=== PATIENT | female | born 1985 | race Caucasian/White ===

== ENCOUNTER 2017-07-11 13:22 | Emergency (ER) | payer BC, OTHER ==
--- NOTE | 2017-07-11 13:39 | ED ---
General Adult HPI - General Chief complaint: Eye Problems Stated complaint: [facility] Time Seen by Provider: 07/11/17 13:29 Source: patient, RN notes reviewed Mode of arrival: ambulatory Limitations: no limitations - History of Present Illness Initial comments: 31-year-old female presents emergency 5 chief complaint of saliva exposure to the eyes. Patient states that 1% on her face and she felt some saliva get into her eyes. Patient states that she did flush her eyes and wash her face. 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 Patient denies any health concerns. She states that she doesn't recall her last tetanus wishes x-ray on the other vaccinations. Patient states that she is now child's name. Patient states that she is not currently having any symptoms at this time. Patient denies any blood being in the saliva.Patient denies any recent fever, chills, shortness of breath, chest pain, back pain, abdominal pain, nausea vomiting, numbness or tingling, dysuria or hematuria, constipation or diarrhea, headaches or visual changes, or any other current symptoms. - Related Data Home Medications Medication Instructions Recorded Confirmed No Known Home Medications [No 07/11/17 07/11/17 Known Home Medications] Allergies Allergy/AdvReac Type Severity Reaction Status Date / Time cefazolin Allergy Rash/Hives Verified 07/11/17 13:29 codeine Allergy Rash/Hives Verified 07/11/17 13:29 Review of Systems ROS Statement: Those systems with pertinent positive or pertinent negative responses have been documented in the HPI. ROS Other: All systems not noted in ROS Statement are negative. Past Medical History Past Medical History: Musculoskeletal Disorder Additional Past Medical History / Comment(s): osteochronditis dissecans History of Any Multi-Drug Resistant Organisms: None Reported Past Surgical History: Section, Orthopedic Surgery Additional Past Surgical History / Comment(s): lt knee arthroscope x2 Past Anesthesia/Blood Transfusion Reactions: No Reported Reaction Past Psychological History: No Psychological Hx Reported Smoking Status: Never smoker Past Alcohol Use History: None Reported Past Drug Use History: None Reported - Past Family History Father Family Medical History: Pulmonary Embolus General Exam Limitations: no limitations General appearance: alert, in no apparent distress Head exam: Present: atraumatic, normocephalic, normal inspection Eye exam: Present: normal appearance, PERRL, EOMI. Absent: scleral icterus, conjunctival injection, periorbital swelling ENT exam: Present: normal exam, mucous membranes moist Neck exam: Present: normal inspection. Absent: tenderness, meningismus, lymphadenopathy Respiratory exam: Present: normal lung sounds bilaterally. Absent: respiratory distress, wheezes, rales, rhonchi, stridor Cardiovascular Exam: Present: regular rate, normal rhythm, normal heart sounds. Absent: systolic murmur, diastolic murmur, rubs, gallop, clicks Extremities exam: Present: normal inspection, full ROM, normal capillary refill. Absent: tenderness, pedal edema, joint swelling, calf tenderness Neurological exam: Present: alert, oriented X3 Psychiatric exam: Present: normal affect, normal mood Skin exam: Present: warm, dry, intact, normal color. Absent: rash Course Vital Signs 07/11/17 13:27 Temperature 98.2 F Pulse Rate 75 Respiratory 18 Rate Blood Pressure 142/76 O2 Sat by Pulse 98 Oximetry Medical Decision Making - Medical Decision Making 31-year-old female presents for slight exposure to the eyes. This and we will update her tetanus. We did start the exposure process. We discussed return parameters and follow-up and all patient's questions. She stated she understood and she is very plan. TENDERNESS. She will be discharged Disposition Clinical Impression: Employee exposure to body fluids Disposition: HOME SELF-CARE Condition: Stable Instructions: Eye Wash (Into the eye), Postexposure Prophylaxis (ED) Additional Instructions: Please use medication as discussed. Please follow up with family doctor if symptoms have not improved over the next two days. Please return to the emergency room if your symptoms increase or worsen or for any other concerns. Referrals: Julissa Trotter DO [Primary Care Provider] - 1-2 days Time of Disposition: 13:39
[2017-07-11] MEDS ORDERED: DIPH,PERTUS(ACELL)TETVAC-LF 0.5 ML VIAL IM ONE (13:40)
[2017-07-11 14:54] VITALS: BP 138/78; PULSE 78; RESP 17; TEMP 98.7
[2017-07-11 15:17] LABS: Hepatitis B Surface Ag Index 0.05
[2017-07-11 15:34] LABS: Hepatitis C Virus IgG Ab Negative (Negative); Hepatitis C Virus IgG Index 0.04
== END 2017-07-11 14:53 | disposition home or self-care (01) ==
LOC: EC 13:22
DX: Z57.8 Occupational exposure to other risk factors (principal); Z88.1 Allergy status to other antibiotic agents; Z88.5 Allergy status to narcotic agent; Z23 Encounter for immunization
CPT/HCPCS: 36415; 86803; 87340; 87390; 90471; 90715; 99283

== ENCOUNTER → 2019-11-25 | Outpatient (CLI) | payer BC ==
[2019-11-25 17:33] LABS: HCT 31.5 % (34.0-46.0); HGB 11.1 gm/dL (11.4-16.0); MCH 33.3 pg (25.0-35.0); MCHC 35.3 g/dL (31.0-37.0); MCV 94.3 fL (80.0-100.0); Mean Platelet Volume 7.1; Platelet Count 250 k/uL (150-450); RBC 3.34 m/uL (3.80-5.40); RDW 12.3 % (11.5-15.5); WBC 13.4 k/uL (3.8-10.6)
== END | disposition home or self-care (01) ==
LOC: LABWHC1 16:03
PROVIDERS: ATTEND Obstetrics & Gynecology
DX: Z34.82 Encounter for supervision of other normal pregnancy, second trimester (principal); Z3A.00 Weeks of gestation of pregnancy not specified
CPT/HCPCS: 36415; 82950; 85027

== ENCOUNTER 2020-03-02 06:00 | Inpatient (IN) | payer BC ==
[2020-03-01 13:21] VITALS: BMI 25.4
--- NOTE | 2020-03-01 18:25 | P.HPOB ---
History of Present Illness H&P Date: 03/01/20 Chief Complaint: Scheduled repeat section This is a 34 y.o. female gravid 3, para 2, with an estimated date of confinement of 03/09/2020, estimated gestational age of 39-0/7 weeks, who presents for scheduled repeat section. She admits to good movement and denies regular contractions. course has been essentially uncomplicated. labs: Hepatitis B surface antigen-neg RPR-NR Rubella-immune Blood type-A+ Antibody screen-neg HIV-NR Hemoglobin-12.2 Toxoplasma-neg Random glucose-77 Quad screen-neg 1 hr. GTT-168, 3 hr. GTT-within normal limits GBS-neg OB Hx: . History of 2 previous c-sections. 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 Review of Systems Constitutional: Denies chills, Denies fever Eyes: denies blurred vision, denies pain Ears, nose, mouth and throat: Denies headache, Denies sore throat Cardiovascular: Denies chest pain, Denies shortness of breath Respiratory: Denies cough Gastrointestinal: Denies abdominal pain, Denies diarrhea, Denies nausea, Denies vomiting Genitourinary: Reports pelvic pain, Reports Musculoskeletal: Reports low back pain Integumentary: Denies pruritus, Denies rash Neurological: Denies numbness, Denies weakness Psychiatric: Denies anxiety, Denies depression Past Medical History Past Medical History: Musculoskeletal Disorder Additional Past Medical History / Comment(s): osteochronditis dissecans History of Any Multi-Drug Resistant Organisms: None Reported Past Surgical History: Section, Orthopedic Surgery Additional Past Surgical History / Comment(s): lt knee arthroscope x2. C-SEC X 2 Past Anesthesia/Blood Transfusion Reactions: Motion Sickness, Postoperative Nausea & Vomiting (PONV) Past Psychological History: No Psychological Hx Reported Smoking Status: Never smoker Past Alcohol Use History: None Reported Past Drug Use History: None Reported - Past Family History Father Family Medical History: Pulmonary Embolus Mother Family Medical History: Hypertension Medications and Allergies Home Medications Medication Instructions Recorded Confirmed Type Pnv No.95/Ferrous Fum/Folic AC 1 each PO DAILY 03/01/20 03/02/20 History [ Multivitamin Tablet] Allergies Allergy/AdvReac Type Severity Reaction Status Date / Time cefazolin Allergy Rash/Hives Verified 03/02/20 06:21 codeine Allergy Rash/Hives Verified 03/02/20 06:21 Exam Osteopathic Statement: *. No significant issues noted on an osteopathic structural exam other than those noted in the History and Physical/Consult. Intake and Output 03/01/20 03/01/20 03/01/20 06:59 14:59 22:59 Other: Weight 74.843 kg HEENT: within normal limits Heart: regular rate & rhythm Lungs: clear to auscultation Abdomen: heart tones: 160's by doppler Cervix: closed/uneffaced/-2 Results Result Diagrams: 03/02/20 06:20 Assessment and Plan (1) 39 weeks gestation of Current Visit: No Status: Acute Code(s): Z3A.39 - 39 WEEKS GESTATION OF SNOMED Code(s): 52766392 (2) Previous delivery affecting Current Visit: No Status: Acute Code(s): O34.219 - MATERNAL CARE FOR UNSP TYPE SCAR FROM PREVIOUS DEL SNOMED Code(s): 276921317 Plan: Proceed with repeat section. I have discussed the risks, benefits, and alternative therapies for the above- mentioned procedure and for both sedation/anesthesia as well as necessary blood products administration, if indicated, as they pertain to this patient. The patient has indicated her understanding and acceptance of the risks and pr ocedures discussed.
[2020-03-02] MEDS ORDERED: LIDOCAINE 1% (10MG/ML) FOR IV START INTRADERMA PRN (06:20)
[2020-03-02] MEDS ORDERED: CITRIC ACID-SODIUM CITRATE 15 ML CUP PO ONE (06:20)
[2020-03-02] MEDS ORDERED: LACTATED RINGERS 1,000 ML IV SCH (06:20)
[2020-03-02] MEDS ORDERED: CLINDAMYCIN 900 MG in DEXTROSE 5% IN WATER 50 ML IVPB ONE ×2 (06:30)
[2020-03-02 06:45] LABS: Basophils % (A) 0 %; Eosinophils # (A) 0.1 k/uL (0-0.7); Eosinophils % (A) 1 %; HCT 34.4 % (34.0-46.0); Lymphocytes # (A) 2.3 k/uL (1.0-4.8); Lymphocytes % (A) 20 %; MCH 33.7 pg (25.0-35.0); MCV 96.3 fL (80.0-100.0); Mean Platelet Volume 7.7; Monocytes # (A) 0.6 k/uL (0-1.0); Monocytes % (A) 5 %; Neutrophils # (A) 8.4 k/uL (1.3-7.7); Neutrophils % (A) 72 %; Platelet Count 231 k/uL (150-450); RBC 3.57 m/uL (3.80-5.40); RDW 12.3 % (11.5-15.5); WBC 11.7 k/uL (3.8-10.6)
[2020-03-02] MEDS ORDERED: ONDANSETRON 4 MG/2 ML VIAL ONE (07:42)
[2020-03-02] MEDS ORDERED: ePHEDrine SULFATE/0.9% NACL/PF 50 MG/5 ML SYRINGE IV ONE (07:42)
[2020-03-02] MEDS ORDERED: KETOROLAC 30 MG/ML 1 ML VIAL ONE (07:42)
[2020-03-02] MEDS ORDERED: OXYTOCIN 10 UNIT/ML 1 ML VIAL ONE (07:42)
[2020-03-02] MEDS ORDERED: MORPHINE SULFATE (PF) 0.3 MG/0.3 ML SYR ONE (07:42)
[2020-03-02] MEDS ORDERED: ONDANSETRON 4 MG/2 ML VIAL IVP PRN ×2 (08:21→08:45)
[2020-03-02] MEDS ORDERED: diphenhydrAMINE 50 MG/ML 1 ML VIAL IVP PRN ×3 (08:21→08:45)
[2020-03-02] MEDS ORDERED: NALOXONE 0.4 MG/ML 1 ML VIAL IV PRN ×2 (08:21→08:45)
[2020-03-02] MEDS ORDERED: HYDROmorphone 0.5 MG/0.5 ML SYRINGE IVP PRN (08:21)
[2020-03-02] MEDS ORDERED: KETOROLAC 30 MG/ML 1 ML VIAL IVP PRN (08:21)
--- NOTE | 2020-03-02 08:33 | P.OP ---
Date of Procedure: 03/02/20 Preoperative Diagnosis: 1. Intrauterine at 39-0/7 weeks. 2. History of previous sections. Postoperative Diagnosis: Same Procedure(s) Performed: Repeat low transverse section Anesthesia: spinal (Duramorph) Surgeon: Nancy Garcia Fmd Teacher #1: Harris Paz Estimated Blood Loss (ml): 400 Pathology: none sent Condition: stable Disposition: floor Indications for Procedure: This is a 34-year-old female 3 para 2 at 39-0/7 weeks who presented for scheduled repeat section. I have discussed the risks, benefits, and alternative therapies for the above- mentioned procedure and for both sedation/anesthesia as well as necessary blood products administration, if indicated, as they pertain to this patient. The patient has indicated her understanding and acceptance of the risks and procedures discussed. Operative Findings: A viable male is noted in the vertex presentation with scores of 9 at 1 minute and 9 at 5 minutes and infant weight of 7 lbs. 10 oz. Normal uterus tubes and ovaries are noted. Description of Procedure: The patient is taken to the operating room where she is placed in the dorsal supine position with leftward tilt after spinal Duramorph anesthesia is given. She is prepped and draped in the normal sterile fashion. Skin was tested and found to be adequately anesthetized. A Pfannenstiel skin incision was made with a scalpel through the previous laparotomy scar. A second knife was used to carry the incision down to the underlying layer of fascia. The fascia was nicked in the midline with a scalpel and then extended laterally bilaterally with Hilton scissors. The anterior lip of the fascia was grasped with 2 Eddi clamps and then dissected off the underlying rectus muscle in the midline with Hilton scissors. The inferior aspect of the fascial incision was grasped with 2 Eddi clamps and dissected off the underlying rectus muscle and the midline with Hilton scissors. Next the peritoneum layer was tented up with 2 hemostats and then entered sharply with the scalpel. The incision is extended superiorly and inferiorly with Metzenbaum scissors. Next a DeLee retractor is placed. The vesicouterine peritoneum is entered sharply with Metzenbaum scissors and extended laterally bilaterally with Metzenbaum scissors and then the bladder flap is pushed inferiorly. The lower uterine segment is incised in transverse fashion with the scalpel and then bluntly entered with a hemostat. Clear fluid is noted. The incision was then extended laterally bilaterally with 2 fingers. Next the 's head is delivered through the incision. Nose and mouth are bulb suctioned. The remainder of the is easily delivered and placed on mother's abdomen. Cord is clamped and cut. Infant is taken to warmer by n ursing staff. Uterine fundus is gently massaged and placenta is delivered manually. Uterus is exteriorized and cleared of all clots and debris. Uterine incision is closed with 0 Vicryl suture in a running locked fashion. A second layer of 0 Vicryl suture is used in a running fashion for hemostasis. Once adequate hemostasis as assured, the vesicouterine peritoneum is reapproximated with 2-0 Vicryl suture in a running fashion. Posterior cul-de-sac is suctioned of all clots and debris. Uterus is returned to the abdomen. Incision is noted to be hemostatic. Peritoneal layer is closed with 0 Vicryl suture in a running fashion. Muscle layer is reapproximated with 0 Vicryl suture in interrupted fashion. Fascia layer is then closed with 0 PDS suture with 2 sutures meeting in the midline and the knots buried in either side and in the midline. The subcutaneous tissue was then closed with 2-0 Vicryl suture. Skin layer was then closed with adams. All sponge and needle counts are correct. The patient is taken to recovery room in stable condition.
[2020-03-02] MEDS ORDERED: diphenhydrAMINE 25 MG CAP PO PRN (08:45)
[2020-03-02] MEDS ORDERED: HYDROcodone/APAP 7.5-325MG 1 EACH TAB PO PRN (08:45)
[2020-03-02] MEDS ORDERED: diphenhydrAMINE 50 MG CAP PO PRN (08:45)
[2020-03-02] MEDS ORDERED: OXYTOCIN 20 UNITS/1000 ML NS 1,000 ML IV SCH (08:45)
[2020-03-02] MEDS ORDERED: ZOLPIDEM 5 MG TAB PO PRN (08:45)
[2020-03-02] MEDS ORDERED: METOCLOPRAMIDE 5 MG/ML 2 ML VIAL IVP PRN (08:45)
[2020-03-02] MEDS ORDERED: HYDROcodone/APAP 5-325MG 1 EACH TAB PO PRN (08:45)
[2020-03-02] MEDS: SENNOSIDES-DOCUSATE SODIUM 1 EACH TAB PO SCH ×2 (17:36→20:03)
[2020-03-02] MEDS: LACTATED RINGERS 1,000 ML IV ONE ×2 (20:02→20:05)
[2020-03-02] MEDS: LACTATED RINGERS 1,000 ML IV SCH (20:02)
[2020-03-02] MEDS: KETOROLAC 30 MG/ML 1 ML VIAL IVP PRN (20:03)
[2020-03-03] MEDS: LACTATED RINGERS 1,000 ML IV SCH ×3 (04:04→17:27)
--- NOTE | 2020-03-03 07:06 | P.PN ---
Progress Note - Text Progress Note Date: 03/03/20 Postoperative day 1 status post section under spinal anesthesia, and i ntrathecal morphine given for postoperative analgesia, patient doing well, there is no anesthesia related complications, Patient had no headache, vital signs stable , Assessment and plan= postop day 1 status post , doing well there is no anesthesia related complication.
[2020-03-03] MEDS: KETOROLAC 30 MG/ML 1 ML VIAL IVP PRN (07:57)
[2020-03-03] MEDS: SENNOSIDES-DOCUSATE SODIUM 1 EACH TAB PO SCH ×2 (07:58→20:22)
[2020-03-03 08:04] LABS: Basophils % (A) 0 %; Eosinophils # (A) 0.1 k/uL (0-0.7); Eosinophils % (A) 0 %; HCT 30.7 % (34.0-46.0); HGB 10.3 gm/dL (11.4-16.0); Lymphocytes # (A) 1.8 k/uL (1.0-4.8); Lymphocytes % (A) 12 %; MCHC 33.7 g/dL (31.0-37.0); MCV 98.1 fL (80.0-100.0); Mean Platelet Volume 7.9; Monocytes # (A) 0.8 k/uL (0-1.0); Monocytes % (A) 5 %; Neutrophils # (A) 12.5 k/uL (1.3-7.7); Neutrophils % (A) 82 %; Platelet Count 187 k/uL (150-450); RBC 3.13 m/uL (3.80-5.40); RDW 12.3 % (11.5-15.5); WBC 15.3 k/uL (3.8-10.6)
--- NOTE | 2020-03-03 09:12 | P.PNOBGPC ---
Subjective - Subjective Principal diagnosis: Status post repeat section postoperative day #1 Interval history: Patient is doing well. She is ambulating. She has not passed flatus or bowel movement yet. She is breast-feeding without difficulty. Lochia is decreasing. Patient reports: Reports appetite normal, Reports voiding normally, Reports pain well controlled, Reports ambulating normally : doing well, nursing well Objective - Vital Signs Latest vital signs: Vital Signs Temp Pulse Resp BP Pulse Ox 03/03/20 08:00 98.1 F 66 16 97/60 97 03/03/20 04:00 98.3 F 65 16 132/50 03/03/20 00:00 98.5 F 55 L 16 134/44 03/02/20 21:00 100 03/02/20 20:00 98.6 F 56 L 18 130/75 03/02/20 19:00 17 03/02/20 17:00 16 98 03/02/20 15:00 97.7 F 75 16 135/66 03/02/20 13:00 17 03/02/20 12:00 98.3 F 70 16 121/70 98 03/02/20 10:36 56 L 16 128/67 03/02/20 10:06 61 17 120/71 03/02/20 09:36 66 17 126/70 03/02/20 09:26 61 17 124/69 97 Intake and Output 03/02/20 03/03/20 03/03/20 22:59 06:59 14:59 Intake Total 1000 Output Total 250 800 Balance 750 -800 Intake: IV 1000 Output: Urine 250 800 Uretheral (Beach) 250 Other: # Voids 2 1 - Exam Extremities: Present: normal. Absent: tenderness, edema Abdomen: Present: normal appearance, soft. Absent: distention, tenderness Incision: Present: normal, dry, intact. Absent: erythematous Uterus: Present: normal, firm. Absent: tenderness - Labs Labs: Abnormal Lab Results - Last 24 Hours (Table) 03/03/20 Range/Units 06:41 WBC 15.3 H (3.8-10.6) k/uL RBC 3.13 L (3.80-5.40) m/uL Hgb 10.3 L (11.4-16.0) gm/dL Hct 30.7 L (34.0-46.0) % Neutrophils # 12.5 H (1.3-7.7) k/uL Assessment and Plan Assessment: Status post repeat section postoperative day #1 (1) 39 weeks gestation of Current Visit: No Status: Acute Code(s): Z3A.39 - 39 WEEKS GESTATION OF SNOMED Code(s): 22294018 (2) Previous delivery affecting Current Visit: No Status: Acute Code(s): O34.219 - MATERNAL CARE FOR UNSP TYPE SCAR FROM PREVIOUS DEL SNOMED Code(s): 171541593 Plan: Encouraged ambulation. Will advance diet as tolerated after flatus. Will switch to oral pain medication today. I will be off this weekend and Dr. Lou will be covering over the weekend.
[2020-03-03] MEDS: IBUPROFEN 600 MG TAB PO PRN ×2 (13:36→20:21)
[2020-03-04] MEDS: ACETAMINOPHEN TAB 325 MG TAB PO PRN ×2 (00:29→08:56)
[2020-03-04] MEDS: IBUPROFEN 600 MG TAB PO PRN ×2 (06:25→11:49)
[2020-03-04] MEDS: SENNOSIDES-DOCUSATE SODIUM 1 EACH TAB PO SCH (08:56)
--- NOTE | 2020-03-04 09:27 | P.DS ---
Providers Date of admission: 03/02/20 06:00 Expected date of discharge: 03/04/20 Attending physician: Nancy Garcia Primary care physician: Stated None - Discharge Diagnosis(es) (1) Status post repeat low transverse section Current Visit: Yes Status: Acute Hospital Course: Patient presented for repeat low transverse . She underwent this procedure without complication. She denies nausea, vomiting, chest pain, shortness of breath or any calf pain. She'll be discharged home postoperative day #2 in stable condition to follow-up with Dr. Garcia in 1-2 weeks. Plan - Discharge Summary Discharge Rx Participant: Yes New Discharge Prescriptions: New Ibuprofen [Motrin] 600 mg PO Q6HR PRN #60 tab PRN Reason: Mild Pain Or Fever >= 100.5 HYDROcodone/APAP 5-325MG [Gerber 5-325] 1 each PO Q4HR PRN #18 tab PRN Reason: Moderate Pain Continue Pnv No.95/Ferrous Fum/Folic AC [ Multivitamin Tablet] 1 each PO DAILY Discharge Medication List Pnv No.95/Ferrous Fum/Folic AC [ Multivitamin Tablet] 1 each PO DAILY 03/01/20 [History] HYDROcodone/APAP 5-325MG [Gerber 5-325] 1 each PO Q4HR PRN #18 tab 03/03/20 [Rx] Ibuprofen [Motrin] 600 mg PO Q6HR PRN #60 tab 03/03/20 [Rx] Follow up Appointment(s)/Referral(s): Nancy Garcia DO [Doctor of Osteopathic Medicine] - 2 Weeks Activity/Diet/Wound Care/Special Instructions: Instructions 1. Do not begin any exercise program for 3 weeks. 2. Do not resume sexual relations for 3 weeks or longer if uncomfortable. 3. You may take tub baths or showers at any time. 4. You may use tampons if desired after 3 weeks. 5. Keep the area of episiotomy (stitches) clean and dry. 6. If you are not nursing, wear a good fitting, supportive bra during the day and limit fluid intake for at least 1 week to prevent breast engorgement. 7. Call the office, [phone], within the next week to make appointment for your 6 week checkup if it has not already been made. 8. Report any of the following occurrences to the doctor promptly: a. Heavy, excessive bleeding b. Chills, fever c. Burning or frequency of urination d. Pain or redness and breasts if nursing e. Increasing pain or swelling in episiotomy (stitches). In addition to the above instructions, the following additional should be follo wed: 1. No heavy lifting or straining (exercising) until after 6 week checkup. 2. Keep abdominal incision clean and dry: You may wear a dressing if more comfortable. 3. Make office appointment for 10 days after going home or as instructed by her doctor. Discharge Disposition: HOME SELF-CARE
[2020-03-04 10:15] VITALS: BP 123/63; PULSE 73; RESP 18; TEMP 97.8
== END 2020-03-04 14:20 | disposition home or self-care (01) | DRG 788 ==
LOC: 4FBP 06:00
PROVIDERS: ADMIT Obstetrics & Gynecology; ATTEND Obstetrics & Gynecology
PROC: 10D00Z1 Extraction of Products of Conception, Low, Open Approach (ICD-10-PCS; principal; 2020-03-02 08:00)
DX: O34.211 Maternal care for low transverse scar from previous cesarean delivery (principal); O99.62 Diseases of the digestive system complicating childbirth; K21.9 Gastro-esophageal reflux disease without esophagitis; Z37.0 Single live birth; Z3A.39 39 weeks gestation of pregnancy; Z88.1 Allergy status to other antibiotic agents; Z88.5 Allergy status to narcotic agent; Z82.49 Family history of ischemic heart disease and other diseases of the circulatory system
CPT/HCPCS: 85025; 86850; 86900; 86901

== ENCOUNTER → 2022-10-15 | Outpatient (CLI) | payer BC ==
--- NOTE | 2022-10-16 07:21 | MM ---
Reason for Exam: Screening (asymptomatic). Patient History: Menarche at age 13. First Full-Term at age 26. Premenopausal. Last menstrual period: 10/12/2022 Risk Values: Karie 5 year model risk: 0.4%. NCI Lifetime model risk: 10.3%. Tissue Density: The breast tissue is heterogeneously dense. This may lower the sensitivity of mammography. Findings: Analyzed By CAD. There is no suspicious group of microcalcifications or new suspicious mass in either breast. Overall Assessment: Negative, BI-RAD 1 Management: Screening Mammogram of both breasts in 1 year. A clinical breast exam by your physician is recommended on an annual basis and results should be correlated with mammographic findings. [facility] will attempt to contact patient to return for supplemental views and ultrasound if indicated. Electronically signed and approved by: Obey Parks DO
== END | disposition home or self-care (01) ==
LOC: RADMAMWWP 06:56
PROVIDERS: ATTEND Obstetrics & Gynecology
DX: Z12.31 Encounter for screening mammogram for malignant neoplasm of breast (principal)
CPT/HCPCS: 77067

== ENCOUNTER 2023-06-03 07:26 | Emergency (ER) | payer BC ==
[2023-06-03] MEDS ORDERED: SODIUM CHLORIDE 0.9% 1,000 ML IV STA (07:41)
[2023-06-03 07:42] VITALS: TEMP 98.8
--- NOTE | 2023-06-03 07:47 | ED ---
Syncope HPI - General Chief Complaint: Syncope Stated Complaint: syncope Time Seen by Provider: 06/03/23 07:28 Source: patient, EMS, RN notes reviewed Mode of arrival: EMS Limitations: no limitations - History of Present Illness Initial Comments: This is a 37-year-old female who presents to the emergency department for a syncopal episode. Patient was at physical therapy for tennis elbow to the right arm. She was having it massaged when she started to feel sick to her stomach. She then knew that she was going to pass out and proceeded to have a syncopal episode. She laid herself down and did not sustain any injuries. The episode lasted for approximately 30 seconds. There was no tonic-clonic activity or a postictal period. She has had syncopal episodes many times in the past, most recently a couple of years ago. She has undergone substantial testing for this, however they've not come to any conclusions as to why this continues to happen. States that it often happens when she is in pain or in significant distress. States that she is passing gas and her abdominal pain has now started to improve. She was also given Zofran by EMS, which was helpful for her symptoms. Denies any fevers, chills, sore throat, cough, dyspnea, chest pain, palpitations, vomiting, diarrhea, back pain, or headaches. MD Complaint: loss of consciousness - Related Data Home Medications Medication Instructions Recorded Confirmed No Known Home Medications 06/03/23 06/03/23 Allergies Allergy/AdvReac Type Severity Reaction Status Date / Time cefazolin Allergy Rash/Hives Verified 06/03/23 09:43 codeine Allergy Rash/Hives Verified 06/03/23 09:43 Review of Systems ROS Statement: Those systems with pertinent positive or pertinent negative responses have been documented in the HPI. ROS Other: All systems not noted in ROS Statement are negative. Past Medical History Past Medical History: Musculoskeletal Disorder Additional Past Medical History / Comment(s): osteochronditis dissecans History of Any Multi-Drug Resistant Organisms: None Reported Past Surgical History: Section, Orthopedic Surgery Additional Past Surgical History / Comment(s): lt knee arthroscope x2. C-SEC X 2 Past Anesthesia/Blood Transfusion Reactions: Motion Sickness, Postoperative Nausea & Vomiting (PONV) Past Psychological History: No Psychological Hx Reported Past Alcohol Use History: None Reported Past Drug Use History: None Reported - Past Family History Father Family Medical History: Pulmonary Embolus Mother Family Medical History: Hypertension General Exam Limitations: no limitations General appearance: alert, in no apparent distress Head exam: Present: atraumatic, normocephalic, normal inspection Eye exam: Present: normal appearance, PERRL, EOMI. Absent: scleral icterus, conjunctival injection, periorbital swelling Respiratory exam: Present: normal lung sounds bilaterally. Absent: respiratory distress, wheezes, rales, rhonchi, stridor Cardiovascular Exam: Present: regular rate, normal rhythm, normal heart sounds. Absent: systolic murmur, diastolic murmur, rubs, gallop, clicks GI/Abdominal exam: Present: soft, normal bowel sounds. Absent: distended, tenderness, guarding, rebound, rigid Neurological exam: Present: alert, oriented X3, CN II-XII intact Psychiatric exam: Present: normal affect, normal mood Skin exam: Present: warm, dry, intact, normal color. Absent: rash Course Vital Signs 06/03/23 06/03/23 06/03/23 07:38 08:00 09:47 Temperature 98.8 F Pulse Rate 54 L 49 L Pulse Rate [ 47 L Medical Bill Processor ] Respiratory 16 17 Rate Blood Pressure 125/91 100/57 O2 Sat by Pulse 99 100 Oximetry Medical Decision Making - Medical Decision Making This is a 37-year-old female who presents to the emergency department for a syncopal episode. Was pt. sent in by a medical professional or institution? @ -No Did you speak to anyone other than the patient for history? @ -No Did you review nursing and triage notes? @ -Yes, and I agree, it is accurate with regards to the patient's symptoms. Were old charts reviewed? @ -No Differential Diagnosis? @ -Differential Syncope: Valvular disease, hypertrophic cardiomyopathy, pulmonary embolism, tamponade, tachycardia, bradycardia, AR, hypovolemia, hemorrhage, dissection, anemia, int racranial hemorrhage, seizure, hypoglycemia, carbon monoxide poisoning, this is not meant to be an all-inclusive list. EKG interpreted by me (3pts min.)? @ -EKG interpreted by me demonstrating the following: Sinus bradycardia. Ventricular rate 49 beats per minute, GA interval 129 ms, QRS duration 84 ms, QTC 441 ms. X-rays interpreted by me (1pt min.)? @ -Not obtained CT interpreted by me (1pt min.)? @ -Not obtained U/S interpreted by me (1pt. min.)? @ -Not obtained What testing was considered but not performed? (CT, X-rays, U/S, labs)? Why? @ -None What meds were considered but not given? Why? @ -None Did you discuss the management of the patient with other professionals? @ -No Did you reconcile home meds? @ -No Was smoking cessation discussed for >3mins.? @ -No Was critical care preformed (if so, how long)? @ -No Were there social determinants of health that impacted care today? How? (Ho melessness, low income, unemployed, alcoholism, drug addiction, transportation, low edu. Level, literacy, decrease access to med. care, halfway, rehab)? @ -No Was there de-escalation of care discussed even if they declined? (Discuss DNR or withdrawal of care, Hospice)? @ -No What co-morbidities impacted this encounter? (DM, HTN, Smoking, COPD, CAD, Cancer, CVA, Hep., AIDS, mental health diagnosis, sleep apnea, morbid obesity)? @ -None Was patient admitted / discharged? @ -Discharged. Lab work obtained and found to be nonactionable. She was given a liter bolus of IV fluids in the emergency department. Patient was somewhat bradycardic, with a heart rate in the 40s. To her knowledge, this is not typical for her, however she has also never had prolonged monitoring like this where it would be identified. Additionally, the patient is very physically fit, and is very possible that this is just her resting heart rate. Whenever she gets up or tries to move around, it immediately increases into the 50s-60s, which is much more normal for her. Reports feeling significantly improved while in the emergency department. She did not exhibit any more abdominal pain. Suspect that symptoms are likely vasovagal in nature, given that the syncope occurs in times of distress or pain. Advised close follow-up with her primary care provider for reevaluation of the syncope and the bradycardia. Undiagnosed new problem with uncertain prognosis? @ -None Drug Therapy requiring intensive monitoring for toxicity (Heparin, Nitro, Insulin, Cardizem)? @ -None Were any procedures done? @ -None Diagnosis/symptom? @ -Syncope, bradycardia Acute, or Chronic, or Acute on Chronic? @ -Acute Uncomplicated (without systemic symptoms) or Complicated (systemic symptoms)? @ -Uncomplicated Side effects of treatment? @ -None Exacerbation, Progression, or Severe Exacerbation] @ -Not applicable Poses a threat to life or bodily function? @ -No Return precautions reviewed in depth, the patient is instructed to return to the emergency department with any new, worsening, or concerning symptoms. Patient verbalized understanding. This case was discussed in detail with the attending ED physician, Dr. Hernández. Presentation, findings, and treatment plan discussed in detail as well. - Lab Data Result diagrams: 06/03/23 08:18 06/03/23 08:18 Lab Results 06/03/23 06/03/23 06/03/23 Range/Units 08:18 08:18 08:18 WBC 5.9 (3.8-10.6) k/uL RBC 3.74 L (3.80-5.40) m/uL Hgb 12.1 (11.4-16.0) gm/dL Hct 34.0 (34.0-46.0) % MCV 91.0 (80.0-100.0) fL MCH 32.4 (25.0-35.0) pg MCHC 35.6 (31.0-37.0) g/dL RDW 11.9 (11.5-15.5) % Plt Count 144 L (150-450) k/uL MPV 7.7 Neutrophils % 75 % Lymphocytes % 17 % Monocytes % 5 % Eosinophils % 2 % Basophils % 1 % Neutrophils # 4.5 (1.3-7.7) k/uL Lymphocytes # 1.0 (1.0-4.8) k/uL Monocytes # 0.3 (0-1.0) k/uL Eosinophils # 0.1 (0-0.7) k/uL Basophils # 0.0 (0-0.2) k/uL PT 12.4 H (9.0-12.0) sec INR 1.2 H (<1.2) APTT 20.7 L (22.0-30.0) sec Sodium 138 (137-145) mmol/L Potassium 4.5 (3.5-5.1) mmol/L Chloride 107 (98-107) mmol/L Carbon Dioxide 26 (22-30) mmol/L Anion Gap 5 mmol/L BUN 16 (7-17) mg/dL Creatinine 0.58 (0.52-1.04) mg/dL Est GFR (CKD-EPI)AfAm >90 (>60 ml/min/1.73 sqM) Est GFR (CKD-EPI)NonAf >90 (>60 ml/min/1.73 sqM) Glucose 102 H (74-99) mg/dL Plasma Lactic Acid Abdiaziz (0.7-2.0) mmol/L Calcium 7.9 L (8.4-10.2) mg/dL Total Bilirubin 0.5 (0.2-1.3) mg/dL AST 24 (14-36) U/L ALT 13 (4-34) U/L Alkaline Phosphatase 27 L (38-126) U/L Troponin I (0.000-0.034) ng/mL Total Protein 6.1 L (6.3-8.2) g/dL Albumin 3.7 (3.5-5.0) g/dL HCG, Qual Not Detected 06/03/23 06/03/23 Range/Units 08:18 08:18 WBC (3.8-10.6) k/uL RBC (3.80-5.40) m/uL Hgb (11.4-16.0) gm/dL Hct (34.0-46.0) % MCV (80.0-100.0) fL MCH (25.0-35.0) pg MCHC (31.0-37.0) g/dL RDW (11.5-15.5) % Plt Count (150-450) k/uL MPV Neutrophils % % Lymphocytes % % Monocytes % % Eosinophils % % Basophils % % Neutrophils # (1.3-7.7) k/uL Lymphocytes # (1.0-4.8) k/uL Monocytes # (0-1.0) k/uL Eosinophils # (0-0.7) k/uL Basophils # (0-0.2) k/uL PT (9.0-12.0) sec INR (<1.2) APTT (22.0-30.0) sec Sodium (137-145) mmol/L Potassium (3.5-5.1) mmol/L Chloride (98-107) mmol/L Carbon Dioxide (22-30) mmol/L Anion Gap mmol/L BUN (7-17) mg/dL Creatinine (0.52-1.04) mg/dL Est GFR (CKD-EPI)AfAm (>60 ml/min/1.73 sqM) Est GFR (CKD-EPI)NonAf (>60 ml/min/1.73 sqM) Glucose (74-99) mg/dL Plasma Lactic Acid Abdiaziz 1.3 (0.7-2.0) mmol/L Calcium (8.4-10.2) mg/dL Total Bilirubin (0.2-1.3) mg/dL AST (14-36) U/L ALT (4-34) U/L Alkaline Phosphatase (38-126) U/L Troponin I <0.012 (0.000-0.034) ng/mL Total Protein (6.3-8.2) g/dL Albumin (3.5-5.0) g/dL HCG, Qual Disposition Clinical Impression: Syncope, Bradycardia Disposition: HOME SELF-CARE Instructions (If sedation given, give patient instructions): Syncope (ED) Additional Instructions: Return to the emergency department with any new, worsening, or concerning symptoms. Follow up with your primary care provider in 1-2 days. Is patient prescribed a controlled substance at d/c from ED?: No Referrals: Boyd Rosado MD [Primary Care Provider] - 1-2 days
[2023-06-03 08:31] LABS: Basophils % (A) 1 %; Eosinophils # (A) 0.1 k/uL (0-0.7); Eosinophils % (A) 2 %; HGB 12.1 gm/dL (11.4-16.0); Lymphocytes % (A) 17 %; MCH 32.4 pg (25.0-35.0); MCHC 35.6 g/dL (31.0-37.0); Mean Platelet Volume 7.7; Monocytes # (A) 0.3 k/uL (0-1.0); Monocytes % (A) 5 %; Neutrophils # (A) 4.5 k/uL (1.3-7.7); Neutrophils % (A) 75 %; Platelet Count 144 k/uL (150-450); RBC 3.74 m/uL (3.80-5.40); RDW 11.9 % (11.5-15.5); WBC 5.9 k/uL (3.8-10.6)
[2023-06-03 08:47] LABS: INR 1.2 (<1.2); Prothrombin Time 12.4 sec (9.0-12.0)
[2023-06-03 08:50] LABS: Partial Thromboplastin Time 20.7 sec (22.0-30.0)
[2023-06-03 08:53] LABS: ALT 13 U/L (4-34); African American GFR (CKD) >90 (>60 ml/min/1.73 sqM); Albumin 3.7 g/dL (3.5-5.0); Anion Gap 5 mmol/L; Blood Urea Nitrogen 16 mg/dL (7-17); Calcium 7.9 mg/dL (8.4-10.2); Carbon Dioxide 26 mmol/L (22-30); Chloride 107 mmol/L (98-107); Glucose 102 mg/dL (74-99); Non-African American GFR(CKD) >90 (>60 ml/min/1.73 sqM); Sodium 138 mmol/L (137-145); Total Bilirubin 0.5 mg/dL (0.2-1.3); Total Protein 6.1 g/dL (6.3-8.2)
[2023-06-03 09:00] LABS: AST 24 U/L (14-36); Alkaline Phosphatase 27 U/L (38-126); Potassium 4.5 mmol/L (3.5-5.1)
[2023-06-03 09:16] LABS: HCG,Qualitative Serum Not Detected
[2023-06-03 09:48] VITALS: BP 100/57; RESP 17
[2023-06-03] MEDS ORDERED: ONDANSETRON 4 MG ODT STARTER PACK 2 TAB BTL PO STA (09:53)
[2023-06-03 10:08] VITALS: PULSE 47
== END 2023-06-03 10:10 | disposition home or self-care (01) ==
LOC: EC 07:26
DX: R00.1 Bradycardia, unspecified (principal); Z88.5 Allergy status to narcotic agent; Z88.1 Allergy status to other antibiotic agents
CPT/HCPCS: 36415; 80053; 83605; 84484; 84703; 85025; 85610; 85730; 93005; 96360; 99284

== ENCOUNTER → 2023-07-07 | Outpatient (CLI) | payer BC ==
--- NOTE | 2023-07-07 16:56 | CA ---
Transthoracic Echo Report Name: Soo Orozco Age: 37 Gender: F : 1985 Exam Date: 07/07/2023 15:54 Exam Location: [facility] Ht (in): 67 Wt (lb): 129 Ordering Physician: Boyd Rosado MD Attending/Referring Phys: Fany Hester PAC Framer Nicole Espinoza RDCS Procedure CPT: Indications: R00.1 bradycardia Cardiac Hx: Technical Quality: Good Contrast 1: Total Dose (mL): Contrast 2: Total Dose (mL): MEASUREMENTS (Male / Female) Normal Values 2D ECHO LV Diastolic Diameter PLAX 4.3 cm 4.2 - 5.9 / 3.9 - 5.3 cm LV Systolic Diameter PLAX 2.7 cm IVS Diastolic Thickness 0.7 cm 0.6 - 1.0 / 0.6 - 0.9 cm LVPW Diastolic Thickness 0.8 cm 0.6 - 1.0 / 0.6 - 0.9 cm LV Relative Wall Thickness 0.3 RV Internal Dim ED PLAX 2.7 cm LA Systolic Diameter LX 2.7 cm 3.0 - 4.0 / 2.7 - 3.8 cm LV Diastolic Volume MOD 4C 107.0 cm??? LV Systolic Volume MOD 4C 55.3 cm??? LV Ejection Fraction MOD 4C 48.4 % LV Cardiac Index MOD 4C 1655.1 cm???/min???m??? LV Diastolic Length 4C 7.9 cm LV Systolic Length 4C 6.3 cm LV Diastolic Volume MOD 2C 81.9 cm??? LV Systolic Volume MOD 2C 29.6 cm??? LV Ejection Fraction MOD 2C 63.8 % LV Cardiac Index MOD 2C 1668.8 cm???/min???m??? LV Diastolic Length 2C 8.4 cm LV Systolic Length 2C 6.1 cm LA Volume 43.4 cm??? 18 - 58 / 22 - 52 cm??? M-MODE Aortic Root Diameter MM 2.7 cm MV E Point Septal Separation 0.4 cm AV Cusp Separation MM 2.1 cm DOPPLER AV Peak Velocity 137.9 cm/s AV Peak Gradient 7.6 mmHg MV Area PHT 2.9 cm??? Mitral E Point Velocity 89.6 cm/s Mitral A Point Velocity 43.8 cm/s Mitral E to A Ratio 2.0 MV Deceleration Time 258.7 ms MV E' Velocity 15.4 cm/s Mitral E to MV E' Ratio 5.8 FINDINGS Left Ventricle Left ventricular ejection fraction is estimated at 55-60 %. Left ventricular cavity size normal. Left ventricular wall thickness normal. Right Ventricle Normal right ventricular size. Unable to estimate the right ventricular systolic pressure. Right Atrium Normal right atrial size. Left Atrium Normal left atrial size. Mitral Valve Structurally normal mitral valve. No mitral stenosis, regurgitation or prolapse. Aortic Valve Trileaflet aortic valve. No aortic valve stenosis or regurgitation. Tricuspid Valve Structurally normal tricuspid valve. No tricuspid regurgitation. Pulmonic Valve Structurally normal pulmonic valve. No pulmonic regurgitation. Pericardium No pericardial effusion. Aorta Normal size aortic root and proximal ascending aorta. CONCLUSIONS Left ventricular ejection fraction 55-60% Normal left ventricular wall thickness No mitral regurgitation No pericardial effusion Previewed by: Dr. Pranay Herron DO (Electronically Signed) Final Date: 07 July 2023 16:55
== END | disposition home or self-care (01) ==
LOC: RADECHMAIN 15:52
PROVIDERS: ATTEND Pediatrics
DX: R00.1 Bradycardia, unspecified (principal)
CPT/HCPCS: 93306

== ENCOUNTER → 2023-08-12 | Outpatient (CLI) | payer BC ==
--- NOTE | 2023-08-22 09:16 | EM ---
EVENT MONITOR The patient was monitored for 48 hours. CLINICAL INFORMATION: Baseline rhythm is a sinus mechanism with normal conduction. The average rate 62 beats per minute, minimum 37, maximum 113 beats per minute. Ventricular ectopic activity was present in form of rare single PVCs. Supraventricular ectopic activity was present in form of rare single PACs. There was short burst of SVT of 9 complexes. No diary was available. CONCLUSION: 1. Sinus mechanism, baseline rhythm. 2. Rare ventricular ectopic activity. 3. Rare supraventricular ectopic activity. 4. Short burst of SVT, maximum of 9 complexes. 5. No diary was available. MMODL / IJN: [id number] / MTDD
== END | disposition home or self-care (01) ==
LOC: RADECHMAIN 07:32
PROVIDERS: ATTEND Pediatrics
DX: I49.3 Ventricular premature depolarization (principal); I47.10 Supraventricular tachycardia, unspecified
CPT/HCPCS: 93225; 93226

== ENCOUNTER → 2025-03-07 | Outpatient (CLI) | payer BC ==
--- NOTE | 2025-03-07 10:39 | XR ---
EXAMINATION TYPE: XR knee complete RT DATE OF EXAM: 03/07/2025 CLINICAL INDICATION: Female, 39 years old with history of M25.561 RIGHT KNEE PAIN, pain TECHNIQUE: Frontal, lateral, and oblique views of the knee were obtained. COMPARISON: None. FINDINGS: There is no acute fracture/dislocation evident in right knee. Mild to moderate tricompartm ent joint space loss without significant spurring. The overlying soft tissue appears unremarkable. IMPRESSION: As above. [facility], , 03/07/2025 10:37 AM
== END | disposition home or self-care (01) ==
LOC: RADXRMAIN 10:13
PROVIDERS: ATTEND Pediatrics
DX: M25.861 Other specified joint disorders, right knee (principal)